=== PATIENT | male | born 1980 | race Caucasian/White ===

== ENCOUNTER 2018-01-23 17:22 | Emergency (ER) | payer OTHER ==
[2018-01-23 18:12] VITALS: BP 130/98
--- NOTE | 2018-01-23 20:32 | UC ---
Skin Complaint HPI - HPI Summary HPI Summary: PT INJURED LEFT LOWER LEG ABOUT 3 MONTHS AGO. HAS CHRONIC LOWER EXTREMITY SWELLING AND EDEMA AND A RESULT WOUND DID NOT HEAL. PT HAS BEEN ATTENDING WOUND CARE WEEKLY. STATES REDNESS AND DRAINAGE HAVE INCREASED SINCE HIS LAST APPT 5 DAYS AGO AND WAS ADVISED TO COME HERE FOR EVAL. HAS A F/U APPT [facility]. DENIES ANY FEVER, NAUSEA. - History of Current Complaint Chief Complaint: UCSkin Time Seen by Provider: 01/23/18 20:31 Stated Complaint: SKIN COMPLAINT Hx Obtained From: Patient Onset/Duration: Gradual Onset, Still Present Skin Exposure Onset/Duration: Worse Since: - 5 DAYS AGO Timing: Constant Onset Severity: Moderate Current Severity: Moderate Pain Intensity: 3 Pain Scale Used: 0-10 Numeric Location: Other - LLE Character: Swelling, Redness Aggravating Factor(s): Nothing Alleviating Factor(s): Nothing Associated Signs & Symptoms: Positive: Rash, Drainage, Tenderness - Allergy/Home Medications Allergies/Adverse Reactions: Allergies Allergy/AdvReac Type Severity Reaction Status Date / Time No Known Allergies Allergy Verified 08/20/16 23:44 Home Medications: Home Medications Atorvastatin* [Lipitor 40 MG*] 40 mg DAILY 01/23/18 [History Confirmed 01/23/18] amLODIPine TAB* [Norvasc 5 mg TAB*] 10 mg PO DAILY 01/23/18 [History Confirmed 01/23/18] metFORMIN* [Glucophage 500 MG TAB *] 500 mg PO BID 01/23/18 [History Confirmed 01/23/18] Review of Systems Constitutional: Negative Skin: Other - ERYTHEMA, ULCERATION, SWELLING, OOZING LLE Respiratory: Negative Cardiovascular: Negative Gastrointestinal: Negative All Other Systems Reviewed And Are Negative: Yes PMH/Surg Hx/FS Hx/Imm Hx Endocrine History: Diabetes Cardiovascular History: Hypertension - Surgical History Surgical History: Yes Surgery Procedure, Year, and Place: right ankle surgery - Family History Known Family History: Positive: Hypertension, Diabetes Negative: Renal Disease - Social History Alcohol Use: None Substance Use Type: None Smoking Status (MU): Heavy Every Day Tobacco Smoker Physical Exam Triage Information Reviewed: Yes Appearance: Well-Appearing, No Pain Distress, Well-Nourished Vital Signs: Initial Vital Signs Temp 97.8 F 01/23/18 18:04 Pulse 76 01/23/18 18:04 Resp 16 01/23/18 18:04 BP 130/98 01/23/18 18:04 Pulse Ox 99 01/23/18 18:04 Vital Signs Reviewed: Yes Eyes: Positive: Conjunctiva Clear ENT: Positive: Hearing grossly normal Neck: Positive: Supple Respiratory: Positive: No respiratory distress, No accessory muscle use Cardiovascular: Positive: Pulses Normal Abdomen Description: Positive: Soft Musculoskeletal: Positive: Edema @ - BILATERAL LOWER EXTREMITY EDEMA Neurological: Positive: Alert Psychological: Positive: Age Appropriate Behavior Skin: Positive: Other - APPROX 15CM DIAMETER AREA OF ERYTHEMA AND OOZING LLE WITH CENTRAL ULCERATION - 3.5CM X 1.5CM Course/Dx - Diagnoses Provider Diagnoses: LLE CELLULITIS Discharge - Discharge Plan Condition: Stable Disposition: HOME Prescriptions: Amoxicillin/Clavulanate TAB* [Augmentin TAB 875*] 875 mg PO BID #19 tab Sulfamethox/Trimethoprim DS* [Bactrim DS 800/160 TAB*] 2 tab PO BID #38 tab Patient Education Materials: Cellulitis (ED) Referrals: Baltazar Bishop DO [Primary Care Provider] - If Needed Additional Instructions: WILL TREAT WITH AUGMENTIN AND BACTRIM. KEEP LEG ELEVATED ABLE. KEEP YOUR WOUND CARE APPT TOMORROW.
[2018-01-23] MEDS ORDERED: Amoxicillin/Clavulanate TAB* 875 MG PO ONE (20:49)
[2018-01-23] MEDS ORDERED: Sulfamethox/Trimethoprim DS 800/160* TAB PO ONE (20:49)
== END 2018-01-23 20:57 | disposition home or self-care (01) ==
LOC: UCCORT 17:22
DX: L03.116 Cellulitis of left lower limb (principal); I10 Essential (primary) hypertension
CPT/HCPCS: 99213; A9270-GY; G0463

== ENCOUNTER 2018-05-31 07:07 | Emergency (ER) | payer OTHER ==
[2018-05-31 07:25] VITALS: BP 130/84
--- NOTE | 2018-05-31 07:44 | UC ---
Zenaida Wilks Julia, scribed for Messi Gregorio MD on 05/31/18 at 0736 . Upper Extremity HPI - HPI Summary HPI Summary: A 37 year old M presents to [facility] with a chief complaint of a swollen and painful laceration to the palmar aspect of the left hand, occurring on 05/25/18. Sutures were placed that day, but now hand is swelling with yellow discharge, erythema, and pain. Pain is 3/10, upon triage. - History of Current Complaint Stated Complaint: HAND LAC Time Seen by Provider: 05/31/18 07:15 Hx Obtained From: Patient Onset/Duration: Lasting Days Severity Initially: Mild Severity Currently: Moderate Pain Intensity: 3 Pain Scale Used: 0-10 Numeric Location Of Pain: Is Discrete @ - left hand Associated Signs And Symptoms: Positive: Swelling, Redness, Other - drainage - Allergies/Home Medications Allergies/Adverse Reactions: Allergies Allergy/AdvReac Type Severity Reaction Status Date / Time No Known Allergies Allergy Verified 08/20/16 23:44 PMH/Surg Hx/FS Hx/Imm Hx Previously Healthy: Yes - Surgical History Surgical History: Yes Surgery Procedure, Year, and Place: right ankle surgery, vein surgary left leg - Family History Known Family History: Positive: Hypertension, Diabetes Negative: Renal Disease - Social History Alcohol Use: None Substance Use Type: None Smoking Status (MU): Heavy Every Day Tobacco Smoker Review of Systems Constitutional: Negative Skin: Other - laceration with erythema and yellow discharge Musculoskeletal: Edema - left hand, Myalgia - left hand All Other Systems Reviewed And Are Negative: Yes Physical Exam - Summary Physical Exam Summary: VITAL SIGNS: Reviewed. GENERAL: Patient is a well-developed and nourished male who is lying comfortable in the stretcher. Patient is not in any acute respiratory distress. HEAD AND FACE: Normocephalic EYES: PERRLA, EOMI x 2. EARS: Hearing grossly intact. MOUTH: Oropharynx within normal limits. NECK: Supple, trachea is midline, no adenopathy, no JVD, no carotid bruit. CHEST: Symmetric, no tenderness at palpation LUNGS: Clear to auscultation bilaterally. No wheezing or crackles. CVS: Regular rate and rhythm, S1 and S2 present, no murmurs or gallops appreciated. ABDOMEN: Soft, non-tender. Bowel sounds are normal. No abdominal abnormal pulsations. EXTREMITIES: Full ROM in all major joints, no cyanosis or clubbing.. Left hand is swollen. No sign of tenosynovitis. NEURO: Alert and oriented x 3. No acute neurological deficits. Speech is normal and follows commands. SKIN: Dry and warm, Left hand laceration with discharge and sutures in place Triage Information Reviewed: Yes Vital Signs: Initial Vital Signs Temp 96.5 F 05/31/18 07:14 Pulse 87 05/31/18 07:14 Resp 18 05/31/18 07:14 BP 130/84 05/31/18 07:14 Pulse Ox 97 05/31/18 07:14 Vital Signs Reviewed: Yes Upper Extremity Course/Dx - Course Course Of Treatment: This patient seems to be having an infection in the left hand. The patient has purulent discharge which I cultured and sent to the lab. There is risk for tenosynovitis however at this point the patient is able to bend and adduct his fingers without any pain. However he was instructed if he develops any more pain, unable to bend his fingers and more swelling he should immediately go to the emergency department to rule out tenosynovitis. He removed ring from the ring finger. He would elevate the hand and apply ice as needed. He also is being starting to take Bactrim twice a day for 10 days. She was given specific instructions to return to the urgent care or go to the emergency department if the symptoms worsen. He understands and agrees. - Differential Dx/Diagnosis Provider Diagnoses: Left hand cellulitis Discharge - Sign-Out/Discharge Documenting (check all that apply): Discharge/Admit/Transfer - Discharge Plan Condition: Stable Disposition: HOME Prescriptions: Sulfamethox/Trimethoprim DS* [Bactrim DS 800/160 TAB*] 1 tab PO BID #20 tab Patient Education Materials: Cellulitis (ED) Referrals: Salty Choi MD [Primary Care Provider] - Additional Instructions: Take medications as indicated. Increase water intake Return to the or ED if symptoms worsem - Billing Disposition and Condition Condition: STABLE Disposition: Home The documentation as recorded by the Zenaida mariano Julia accurately reflects the service I personally performed and the decisions made by Jg landsi Walter, MD.
--- NOTE | 2018-06-02 15:33 | UC ---
- Progress Note Progress Note: Pt on Bactrim. Final wound culture with staph aureus and sensitive to Bactrim. No change Discharge - Sign-Out/Discharge Documenting (check all that apply): Post-Discharge Follow Up - Discharge Plan Condition: Stable Disposition: HOME Prescriptions: Sulfamethox/Trimethoprim DS* [Bactrim DS 800/160 TAB*] 1 tab PO BID #20 tab Patient Education Materials: Cellulitis (ED) Referrals: Salty Choi MD [Primary Care Provider] - Additional Instructions: Take medications as indicated. Increase water intake Return to the UC or ED if symptoms worsem - Billing Disposition and Condition Condition: STABLE Disposition: Home
== END 2018-05-31 07:35 | disposition home or self-care (01) ==
LOC: UCEAST 07:07
DX: L03.114 Cellulitis of left upper limb (principal); S61.412D Laceration without foreign body of left hand, subsequent encounter; F17.200 Nicotine dependence, unspecified, uncomplicated; X58.XXXD Exposure to other specified factors, subsequent encounter
CPT/HCPCS: 87070; 87077; 87186; 87205; 87640; 87641; 99212; G0463